=== PATIENT | male | born 1995 | race Caucasian/White ===

== ENCOUNTER 2023-06-30 14:10 | Outpatient (AMB) | payer OTHER, SELFPAY ==
--- NOTE | 2023-06-30 14:12 | MHC.OFFVIS ---
Vital Signs 06/30/23 14:25 Height 6 ft 1 in Weight 308 lb BMI 40.6 BP 123/71 Blood Pressure Location Rt brachial Position Sitting Pulse 76 Intake Visit Reasons: Rectal Bump Intake Note: This patient presents for an assessment for Rectal Bump. Patient c/o; Onset Mar 2023, rectal bump, reports no discharge. Intertype Operator Required: No Accompanied by: Self / Same As Patient Allergies cat dander Allergy (Verified 06/30/23 14:27) Unknown [place] Allergy (Uncoded 06/30/23 14:27) unknown Medication List - Last Reconciled 06/30/23 by Alexy Manuel MD No Known Home Meds HPI HPI Rectal Bump: Details: 28-year-old male referred for what he describes as a ?bump? in his anus. He says that he noticed a lump outside his anus about a month ago when he was in the bathroom he denies any pain or tenderness. He denies any bleeding. Denies any complaints with regards to this. [facility] Medical History Internal and external hemorrhoids without complication Surgical History History of vasectomy Family History Maternal Grandfather Colon cancer Social History Alcohol intake: never Patient Tobacco Use Status: Never used Tobacco Review of Systems Const Denies chills and Denies fever(s) Card Denies chest pain, Denies dyspnea and Denies dyspnea on exertion Resp Denies cough, Denies dyspnea and Denies dyspnea on exertion GI Denies hematochezia and Denies change in bowel habits Denies hematuria and Denies difficulty urinating Musc Denies back pain and Denies limited range of motion Neuro Denies focal weakness and Denies convulsions Psych Denies depression and Denies mood swings Physical Exam Vital Signs: Last Vital Signs Pulse 76 06/30/23 14:25 BP 123/71 06/30/23 14:25 BMI result Body Mass Index 40.6 Const General: comfortable and no acute distress Orientation/consciousness: patient oriented x3 Neck Neck: Yes no lymphadenopathy Resp Auscultation: clear to auscultation bilaterally Cardio Rhythm: regular rhythm GI Other: Rectal exam shows external hemorrhoids Palpation (GI): Soft to palpation, nontender and no guarding Neuro General: patient oriented x3 Office Procedures Anoscopy He was in moreno-knife position. The anoscope was gently inserted. A full examination of the anal canal was done. He had this indeed sized mixed internal external hemorrhoids on the left and right side. There were no other lesions. There was no fissure. There was no induration. There was no tenderness or bleeding. [id number] Assessment & Plan Assessment & Plan (1) Internal and external hemorrhoids without complication: Code(s): K64.4 - Residual hemorrhoidal skin tags; K64.8 - Other hemorrhoids Category: Medical Plan: He had been referred to me because of the patient describing a ?lump? in his anus. Anoscopy shows mixed hemorrhoidal columns on both the left and right side. This are otherwise non symptomatic. He does understand the option of hemorrhoidectomy for severe symptoms in the future He does not seem to require any surgical intervention at this time. He can follow up on a p.r.n. basis. Coding Level of Care Code New Pt Level 3 (77332) Diagnoses Internal and external hemorrhoids without complication K64.4; K64.8 CPT Codes Details - CPT: 29233-Bhtxppzm ([id number])
[2023-06-30 14:25] VITALS: BP 123/71; PULSE 76; BMI 40.6
== END 2023-06-30 14:48 | disposition home or self-care (01) ==
PROVIDERS: PCP Internal Medicine; Referring Provider Internal Medicine; Visit Provider Surgery
DX: K64.4 Residual hemorrhoidal skin tags (principal); K64.8 Other hemorrhoids
CPT/HCPCS: 46600; 99203

== ENCOUNTER → 2023-06-30 14:10 | Outpatient (BNVA) | payer OTHER, SELFPAY | PROVIDERS: PCP Internal Medicine; Referring Provider Internal Medicine; Visit Provider Surgery | DX: K64.8 Other hemorrhoids (principal); K64.4 Residual hemorrhoidal skin tags | CPT/HCPCS: 46600 ==